=== PATIENT | male | born 1940 | race Hispanic/Latino ===

== ENCOUNTER → 2019-02-04 | Outpatient (CLI) | payer MEDICARE, OTHER | END | disposition home or self-care (01) | LOC: RAH 10:27 | PROVIDERS: ATTEND Internal Medicine | DX: N28.1 Cyst of kidney, acquired (principal) | CPT/HCPCS: 76770 ==

== ENCOUNTER 2021-02-04 06:58 | Emergency (ER) | payer MEDICARE ==
[~2021-02-04 06:58] MED LIST: ACET650T24 PO; AMLO-258 PO; BISA5TAB12 PO; CEPH-578 PO; FINA5TAB41 PO; LISI10TA24 PO; LOPE2CAP PO; METF750T46 PO; METO100T14 PO; NAPR-1196 PO; ROSU10TA28 PO; TAMS-1 PO
[2021-02-04] MEDS ORDERED: KETOROLAC TROMETHAMINE 30MG/ML ONE (08:49)
[2021-02-04] MEDS ORDERED: ALLOPURINOL 100 MG TABLET PO ONE (09:58)
== END 2021-02-04 10:04 | disposition home or self-care (01) ==
LOC: EDH 06:58
DX: M10.071 Idiopathic gout, right ankle and foot (principal); E11.9 Type 2 diabetes mellitus without complications; I10 Essential (primary) hypertension; E66.01 Morbid (severe) obesity due to excess calories
CPT/HCPCS: 36415; 73610; 73630; 84550; 96372; 99284; J1885

== ENCOUNTER 2021-11-24 21:56 | Emergency (ER) | payer MEDICARE ==
[~2021-11-24] VITALS: Ht 165.1 cm; Wt 139.7 kg
[2021-11-24] MEDS ORDERED: TRAM50TA2 PO (23:29)
[2021-11-24] MEDS ORDERED: TRAMADOL HCL 50 MG TABLET PO ONE (23:30)
[2021-11-24 23:35] VITALS: BP 142/76
== END 2021-11-24 23:55 | disposition home or self-care (01) ==
LOC: EDH 21:56
DX: M13.851 Other specified arthritis, right hip (principal); I10 Essential (primary) hypertension; E11.9 Type 2 diabetes mellitus without complications; Z98.890 Other specified postprocedural states; Z79.84 Long term (current) use of oral hypoglycemic drugs; Z79.899 Other long term (current) drug therapy
CPT/HCPCS: 73502; 73551